=== PATIENT | female | born 1990 | race Caucasian/White ===

== ENCOUNTER → 2021-04-19 | Outpatient (CLI) | payer OTHER ==
--- NOTE | 2021-04-19 12:06 | RAD ---
EXAM: Thyroid sonogram. HISTORY: Fer's thyroiditis. TECHNIQUE: Sonographic imaging of the thyroid was performed. COMPARISON: None. FINDINGS: The right thyroid lobe measures 3.7 x 1.0 x 1.4 cm. The left thyroid lobe measures 3.4 x 1. 3 x 1.2 cm. The thyroid isthmus measures 4 mm. There is diffusely heterogeneous thyroid parenchyma. T here is decreased thyroid blood flow. No discrete nodule is seen. IMPRESSION: Diffusely heterogeneous and hypervascular thyroid and slight decreased thyroid size. This can be seen as a sequela of thyroiditis. No nodule is seen. Electronically signed by: Ting Randolph MD (04/19/2021 12:04 PM) [id number]
== END ==
LOC: US 10:55
PROVIDERS: ATTEND Family Medicine
DX: E06.3 Autoimmune thyroiditis (principal)
CPT/HCPCS: 76536

== ENCOUNTER → 2022-02-27 | Outpatient (CLI) | payer OTHER ==
--- NOTE | 2022-02-27 16:40 | RAD ---
US THYROID History: Reason: HASHIMOTOS / Spl. Instructions: / History: Comparison: April 19, 2021 Technique: Multiple grayscale and color Doppler images of the thyroid gland were obtained. Findings: Right thyroid lobe: 4.3 x 1.1 x 1.7 cm. Heterogeneous echotexture. Left thyroid lobe: 3.5 x 1.1 x 1.2 cm. Heterogeneous echotexture. Isthmus: 0.3 cm. -Solid hyperechoic isthmus nodule measures 0.5 x 0.4 x 0.5 cm. TI-RADS 3. New compared to prior. ACR Thyroid Imaging, Reporting And Data System (TI-RADS): White Paper Of The ACR TI-RADS Committee. J [employer]urnal of the [employer], volume 14, issue 5, pages 587-595 (March 2017). IMPRESSION: 1. Diffusely heterogeneous nodular thyroid compatible with known thyroiditis. 2. TI-RADS 3 left isthmus nodule. Recommend one-year ultrasound follow-up. Electronically signed by: Calderon Rodriguez DO (02/27/2022 4:38 PM) [id number]
== END ==
LOC: US 08:52
PROVIDERS: ATTEND Nurse Practitioner Family
DX: E04.2 Nontoxic multinodular goiter (principal); E06.3 Autoimmune thyroiditis
CPT/HCPCS: 76536